=== PATIENT | female | born 1960 | race African-American/Black ===

== ENCOUNTER 2019-02-11 09:32 | Day surgery (SDC) | payer MEDICARE, OTHER ==
[~2019-02-11 09:32] MED LIST: CEFAZOLIN SODIUM 1 GM in DEXTROSE 5%-WATER 50 ML IV PRN
[2019-02-11] MEDS ORDERED: ONDANSETRON HCL INJ/PF 4 MG/2 ML SDV ONE (10:12)
[2019-02-11] MEDS ORDERED: FENTANYL CITRATE INJ/PF 100 MCG/2 ML AMPUL ONE (10:12)
[2019-02-11] MEDS ORDERED: MIDAZOLAM 2 MG/2 ML INJ ONE (10:12)
[2019-02-11] MEDS ORDERED: PROPOFOL INJ 200 MG/20 ML VIAL IV ONE ×2 (10:13→14:21)
[2019-02-11 11:01] LABS: ABSOLUTE EOSINOPHILS # (AUTO) 0.1 10^3/uL (0.0-0.6); ABSOLUTE LYMPHOCYTES (AUTO) 1.5 10^3/uL (0.5-4.7); ABSOLUTE MONOCYTES (AUTO) 0.6 10^3/uL (0.1-1.4); ABSOLUTE NEUT (AUTO) 4.5 10^3/uL (1.7-8.2); BASOPHILS % (AUTO) 0.7 % (0-2); HEMATOCRIT 28.7 % (36.0-47.0); HEMOGLOBIN 9.4 g/dL (12.0-15.5); LYMPHOCYTES % (AUTO) 22.6 % (13-45); MEAN CORPUSCULAR HEMOGLOBIN 29.2 pg (27.0-33.4); MEAN CORPUSCULAR HGB CONC 32.8 g/dL (32.0-36.0); MEAN CORPUSCULAR VOLUME 89 fl (80-97); PLATELET COUNT 291 10^3/uL (150-450); RED BLOOD COUNT 3.22 10^6/uL (3.72-5.28); RED CELL DISTRIBUTION WIDTH 14.1 % (11.5-14.0); SEGMENTED NEUTROPHILS % (AUTO) 66.7 % (42-78); TOTAL CELLS COUNTED % (AUTO) 100 %; WHITE BLOOD COUNT 6.7 10^3/uL (4.0-10.5)
[2019-02-11 11:17] LABS: ANION GAP 16 (5-19); BLOOD UREA NITROGEN 31 mg/dL (7-20); CALCIUM 9.7 mg/dL (8.4-10.2); CARBON DIOXIDE 25 mmol/L (22-30); CHLORIDE 100 mmol/L (98-107); GLUCOSE 96 mg/dL (75-110); POTASSIUM 3.7 mmol/L (3.6-5.0)
[2019-02-11] MEDS ORDERED: BUPIVACAINE HCL 0.25 % INJ/PF (2.5 MG/1 ML) 30 ML VIAL ONE ×2 (11:48→11:58)
[2019-02-11] MEDS ORDERED: LIDOCAINE 0.5% INJ-PF (5 MG/ML) 50 ML SDV ONE (11:48)
[2019-02-11] MEDS ORDERED: BACITRACIN INJ 50,000 UNIT VIAL ONE (11:48)
[2019-02-11] MEDS ORDERED: LIDOCAINE 1% INJ-PF (10 MG/ML) 30 ML SDV ONE (11:48)
[2019-02-11] MEDS ORDERED: HEPARIN SOD (PORCINE) 1,000 UNIT/ML 10 ML VIAL ONE (11:49)
[2019-02-11] MEDS ORDERED: LIDOCAINE 2% INJ-PF (20 MG/ML) 10 ML AMPUL ONE ×2 (11:54→11:55)
[2019-02-11] MEDS ORDERED: LIDOCAINE 2%/EPINEPHRINE INJ 20 ML VIAL ONE (11:58)
[2019-02-11] MEDS ORDERED: ONDANSETRON HCL INJ/PF 4 MG/2 ML SDV IV PRN (12:48)
[2019-02-11] MEDS ORDERED: FENTANYL CITRATE INJ/PF 100 MCG/2 ML AMPUL IV PRN ×3 (12:48)
[2019-02-11] MEDS ORDERED: DIPHENHYDRAMINE HCL 50 MG/ML VIAL IV PRN (12:48)
[2019-02-11] MEDS ORDERED: MORPHINE SULFATE 10 MG/ML INJ IV PRN (12:48)
[2019-02-11] MEDS ORDERED: OXYCODONE-ACETAMINOPHEN 5-325 MG TABLET PO PRN ×2 (12:48)
[2019-02-11] MEDS ORDERED: MEPERIDINE HCL/PF INJ 25 MG/1 ML DISP.SYRIN IV PRN (12:48)
--- NOTE | 2019-02-11 14:22 | Discharge Summary ---
Discharge Summary (SDC) - Discharge Final Diagnosis: End-stage renal disease. Date of Surgery: 02/11/19 Discharge Date: 02/11/19 Condition: Fair Treatment or Instructions: Discharge home [after recovery per ASU criteria]. Diet , [renal],as tolerated, when fully awake advance as tolerated. Activities within moderation encouraged. Follow up in my office by appointment in about [1 to 2 weeks]. Call for appointment. Leave wounds [covered], [keep clean and dry, until office visit in 1 week]. Hold of on school/work [until evaluation in office]. Minimal meds per med rec. Percocet. May shower [in 48 hrs], [try to keep operated area as dry as possible]. Prescriptions: Oxycodone HCl/Acetaminophen [Percocet 5-325 mg Tablet] 1 tab PO ASDIR PRN #15 tab PRN Reason: Referrals: FLO MELGAR, BRIGADIER-C [Primary Care Provider] - Respiratory Treatments at Home: Deep Breathing/Coughing Discharge Activity: Activity As Tolerated Report the Following to Your Physician Immediately: Shortness of Breath, Unusual Bleeding
--- NOTE | 2019-02-11 14:26 | Operative Report ---
Operative Report DATE OF SURGERY: 02/11/19 PREOPERATIVE DIAGNOSIS: End-stage renal disease. POSTOPERATIVE DIAGNOSIS: End-stage renal disease. OPERATION: Insertion of left brachiocephalic AV fistula. SURGEON: DEMETRIUS BOATENG SENIOR BUSINESS PROCESS ANALYST: None. ANESTHESIA: LMAC TISSUE REMOVED OR ALTERED: Not applicable. COMPLICATIONS: None. ESTIMATED BLOOD LOSS: 5 mL. INTRAOPERATIVE FINDINGS: Satisfactory artery and vein, 3.5 mm coronary dilator easily accepted in the vein. Satisfactory findings on Doppler. Signal somewhat hard to feel external auscultation at immediately postop. The patient has unusually thick adiposity so that the vessels lie easily 1-1/2 to 2 cm beneath the skin. This suggests that use will need superficialization. PROCEDURE: Operative Report PROCEDURE: After reviewing the procedure with the patient, [she] was taken to the operating room. The patient was sedated and the [left upper extremity] prepared with chlorhexidine and draped out with sterile linen. After the "" universal timeout", in which it was verified that the patient [received IV antibiotics] the procedure commenced. The sterilely sheathed ultrasound probe was used to evaluate the left venous and arterial systems, pertinent to the previously done vein mapping. Local anesthesia was infiltrated and a transverse incision made over the upper forearm, near the antecubital fossa. Dissection proceeded through the subcutaneous tissues down to the cephalic vein. This was dissected out proximally and distally for about 2 cm. Likewise major branches. The Bicipital aponeurosis was now incised longitudinally and the brachial artery dissected out for a distance of about 1.5 cm. Rubber loops were placed on either end. The patient was given 2500 units of heparin intravenously. The deep branch of the cephalic vein was transected and irrigated with heparinized solution. The distal branches were clipped Coronary dilators were accepted [up to 3.5 mm]. The artery was controlled proximally and distally with rubber loops. An arteriotomy approximately [1 cm] in length was made, the artery was irrigated proximally and distally with heparinized solution. The transected vein was now spatulated [using the branch patch technique], it was then anastomosed end to end to side into the brachial artery. This was done using a continuous suture of 6-0 Prolene. Controls of the fistula were now released and it was analyzed using a Doppler probe. Hemostasis was secured once optimal function was assured, the wound was irrigated with antibiotic containing solution and closed. Closure was done using interrupted 3-0 PDS for the subcutaneous tissues. The skin was closed using a continuous subcutaneous suture of 4-0 Monocryl which was reinforced with Steri-Strips over benzoin. I then left the operative field and returned with a stethoscope covered with a sterile Tegaderm dressing. This allowed external auscultation of the fistula. The procedure was concluded by applying a Kerlix dressing over the surgical site. DICTATING PHYSICIAN: DEMETRIUS BASHIR M.D.
[2019-02-11] MEDS ORDERED: OXYCODONE-ACETAMINOPHEN 5-325 MG TABLET ONE (14:59)
[2019-02-11 16:26] VITALS: BP 158/74
== END 2019-02-11 16:10 | disposition home or self-care (01) ==
LOC: OROUT 09:32
PROVIDERS: ATTEND Surgery
DX: I12.0 Hypertensive chronic kidney disease with stage 5 chronic kidney disease or end stage renal disease (principal); N18.6 End stage renal disease; Z79.899 Other long term (current) drug therapy; Z99.2 Dependence on renal dialysis; Z01.818 Encounter for other preprocedural examination
CPT/HCPCS: 36818; 36415; 85025; 80048; J2250; J3490 ×3; J0690; J3010; J1644; A9270; J2405; J7060; J2704; 1844

== ENCOUNTER 2019-04-01 11:30 | Day surgery (SDC) | payer MEDICARE ==
[2019-03-27 09:53] LABS: HEMATOCRIT 35.4 % (36.0-47.0); HEMOGLOBIN 11.7 g/dL (12.0-15.5); MEAN CORPUSCULAR HEMOGLOBIN 29.9 pg (27.0-33.4); MEAN CORPUSCULAR VOLUME 91 fl (80-97); PLATELET COUNT 223 10^3/uL (150-450); RED BLOOD COUNT 3.91 10^6/uL (3.72-5.28); RED CELL DISTRIBUTION WIDTH 15.7 % (11.5-14.0); WHITE BLOOD COUNT 5.2 10^3/uL (4.0-10.5)
[2019-03-27 10:20] LABS: ANION GAP 11 (5-19); BLOOD UREA NITROGEN 27 mg/dL (7-20); CALCIUM 10.7 mg/dL (8.4-10.2); CARBON DIOXIDE 30 mmol/L (22-30); CHLORIDE 101 mmol/L (98-107); GLUCOSE 100 mg/dL (75-110); POTASSIUM 3.5 mmol/L (3.6-5.0)
--- NOTE | 2019-03-27 11:12 | RADIOLOGY REPORT (SQ) ---
EXAM DESCRIPTION: CHEST PA/LATERAL COMPLETED DATE/TIME: 03/27/2019 10:09 am REASON FOR STUDY: PRE-OP COMPARISON: 03/03/2013. EXAM PARAMETERS: NUMBER OF VIEWS: two views TECHNIQUE: Digital Frontal and Lateral radiographic views of the chest acquired. RADIATION DOSE: NA LIMITATIONS: none FINDINGS: LUNGS AND PLEURA: No opacities, masses or pneumothorax. No pleural effusion. MEDIASTINUM AND HILAR STRUCTURES: No masses or contour abnormalities. HEART AND VASCULAR STRUCTURES: Heart normal size. No evidence for failure. BONES: No acute findings. HARDWARE: Right IJ hemodialysis catheter with tip at cavoatrial junction. OTHER: No other significant finding. IMPRESSION: NO SIGNIFICANT RADIOGRAPHIC FINDING IN THE CHEST. TECHNICAL DOCUMENTATION: JOB ID: [id number] [employer]- All Rights Reserved Reading location - IP/workstation name: [email or web address]
--- NOTE | 2019-03-27 14:21 | EKG REPORT ---
SEVERITY:- ABNORMAL ECG - SINUS RHYTHM LVH WITH SECONDARY REPOLARIZATION ABNORMALITY : Confirmed by: Kanu Hussein 27-Mar-2019 14:20:21
[~2019-04-01 11:30] MED LIST changes: +CEFAZOLIN 1 GM/D5W RTU 1 GM/50 ML RTUPB IV ONE; +CEFAZOLIN 1 GM/D5W RTU 1 GM/50 ML RTUPB IV PRN; -CEFAZOLIN SODIUM 1 GM in DEXTROSE 5%-WATER 50 ML IV PRN; +LIDOCAINE 0.5% INJ-PF (5 MG/ML) 50 ML SDV SUBCUT PRN; +NORMAL SALINE 1000 ML (RENAL PATIENTS) IV PRN
[2019-04-01] MEDS ORDERED: LIDOCAINE 0.5% INJ-PF (5 MG/ML) 50 ML SDV ONE ×2 (12:12→12:59)
[2019-04-01] MEDS ORDERED: BUPIVACAINE HCL 0.25 % INJ/PF (2.5 MG/1 ML) 30 ML VIAL ONE (12:59)
[2019-04-01] MEDS ORDERED: BACITRACIN INJ 50,000 UNIT VIAL ONE (12:59)
[2019-04-01] MEDS ORDERED: HEPARIN SOD (PORCINE) 1,000 UNIT/ML 10 ML VIAL ONE (12:59)
[2019-04-01] MEDS ORDERED: LIDOCAINE 1% INJ-PF (10 MG/ML) 30 ML SDV ONE (12:59)
[2019-04-01] MEDS ORDERED: FENTANYL CITRATE INJ/PF 100 MCG/2 ML AMPUL ONE (13:00)
[2019-04-01] MEDS ORDERED: MIDAZOLAM 2 MG/2 ML INJ ONE (13:00)
[2019-04-01] MEDS ORDERED: ONDANSETRON HCL INJ/PF 4 MG/2 ML SDV ONE (13:01)
[2019-04-01] MEDS ORDERED: PROPOFOL INJ 200 MG/20 ML VIAL IV ONE ×2 (13:01→15:28)
[2019-04-01] MEDS ORDERED: LIDOCAINE 1%/EPINEPHRINE INJ 20 ML VIAL ONE (13:19)
[2019-04-01] MEDS ORDERED: ROPIVACAINE HCL 0.5% INJ/PF (5 MG/1 ML) 30 ML SDV ONE (13:19)
[2019-04-01] MEDS ORDERED: ONDANSETRON HCL INJ/PF 4 MG/2 ML SDV IV PRN (14:01)
[2019-04-01] MEDS ORDERED: MORPHINE SULFATE 10 MG/ML INJ IV PRN (14:01)
[2019-04-01] MEDS ORDERED: FENTANYL CITRATE INJ/PF 100 MCG/2 ML AMPUL IV PRN ×3 (14:01)
[2019-04-01] MEDS ORDERED: MEPERIDINE HCL/PF INJ 25 MG/1 ML DISP.SYRIN IV PRN (14:01)
[2019-04-01] MEDS ORDERED: DIPHENHYDRAMINE HCL 50 MG/ML VIAL IV PRN (14:01)
--- NOTE | 2019-04-01 17:05 | Discharge Summary ---
Discharge Summary (SDC) - Discharge Final Diagnosis: #1 left arm AV fistula. 2. End-stage renal disease. 3. Increased body mass index. Date of Surgery: 04/01/19 Discharge Date: 04/01/19 Condition: Good Forms: Return to Work Treatment or Instructions: Discharge home.. Diet , [renal],as tolerated, when fully awake advance as tolerated. Activities within moderation encouraged. Follow up in my office by appointment in about [1 week]. Call for appointment. Leave wounds [covered], [keep clean and dry, until office visit in 1 week]. Hold of on school/work [until evaluation in office]. Train patient in use of drain, family or patient and as needed. Meds per med rec. Percocet. May shower [in 48 hrs], [try to keep operated area as dry as possible]. Prescriptions: Oxycodone HCl/Acetaminophen [Percocet 5-325 mg Tablet] 1 tab PO ASDIR PRN #10 tab PRN Reason: Referrals: FLO MELGAR, MANAGER [employer]-C [Primary Care Provider] - Discharge Diet: Other (Comments) - Renal. Respiratory Treatments at Home: Deep Breathing/Coughing Discharge Activity: Activity As Tolerated Report the Following to Your Physician Immediately: Shortness of Breath, Unusual Bleeding
--- NOTE | 2019-04-01 17:15 | Operative Report ---
Operative Report DATE OF SURGERY: 04/01/19 PREOPERATIVE DIAGNOSIS: #1 left arm AV fistula. 2. End-stage renal disease. 3. Increased body mass index. POSTOPERATIVE DIAGNOSIS: #1 left arm AV fistula. 2. End-stage renal disease. 3. Increased body mass index. OPERATION: Superficialization of left arm brachiocephalic fistula. SURGEON: DEMETRIUS BOATENG CLEANING TECHNICIAN: None. ANESTHESIA: LMAC TISSUE REMOVED OR ALTERED: Subcutaneous adipose tissue. COMPLICATIONS: None. ESTIMATED BLOOD LOSS: 20 mL. INTRAOPERATIVE FINDINGS: Of a nice to develop a very deeply placed left brachiocephalic fistula. As much as 2 cm beneath the skin. Satisfactory removal of overlying adipose tissue with approximation of fistula to skin. Quite nicely palpable at the end of the procedure. Uneventful access anticipated. There is a small chance of needing further maturation by angioplasty. PROCEDURE: After going over the procedure with the patient and her family she was admitted to the operating room. A cervical block had been placed by anesthesia. The left upper extremity was prepared with chlorhexidine and draped out with sterile linen. After the universal timeout, in which it was verified the patient had received antibiotic, the procedure commenced. Ultrasound evaluation of the fistula was done and the incisions sketched. These were about 6 cm long and about 8 cm apart., Horizontally placed. 2 seemed necessary and were adequate for this procedure. The lowermost incision was made after giving additional local anesthesia. Dissection proceeded down to the fistula. The overlying adipose tissue for about 1 cm was now excised up to the immediate subcutaneous plane working inferiorly and then superiorly. The vein was dissected free of surrounding attachments at as well as including occasional vessels. These were doubly clamped and clipped and divided as encountered. The next incision was now approached in the identical fashion. Incision made, dissection proceeded down to the vein, and the overlying tissues for about 1 cm wide were excised up to the immediate subcutaneous layer. The vein was now dissected free of surrounding tissue and occasional branches which were doubly clipped and divided. In this way the entire vein was freed up for his from its underlying tissues. Interrupted sutures of 6-0 Prolene were now used between the subcuticular layer and the adventitial layer of the fistula so as to approximate the vein to the immediate subcutaneous plane. Once this was done the fistula was really quite nicely palpable for at least 15 cm. A Juan C drain was now inserted from inferiorly and laterally lying somewhat away from the fistula. It was anchored using 3-0 PDS. The wounds were now closed using interrupted 3-0 PDS to the subcutaneous tissue and subcuticular sutures of 4-0 Monocryl. These were reinforced with Steri-Strips over benzoin and the procedure concluded with the application of Steri-Strips and gauze dressings.
[2019-04-01 18:08] VITALS: BP 151/69
== END 2019-04-01 18:15 | disposition home or self-care (01) ==
LOC: OROUT 11:30
PROVIDERS: ATTEND Surgery
DX: Z99.2 Dependence on renal dialysis (principal); Z79.899 Other long term (current) drug therapy; N18.6 End stage renal disease; E66.9 Obesity, unspecified; I12.0 Hypertensive chronic kidney disease with stage 5 chronic kidney disease or end stage renal disease; Z68.33 Body mass index [BMI] 33.0-33.9, adult
CPT/HCPCS: 93005; 36415 ×2; 84132; 85027; 80048; 71046; 93010; 36821; J2795; J2250; J3490 ×4; J0690; J3010; J1644; J2405; J2704